=== PATIENT | female | born 1990 | race Caucasian/White ===

== ENCOUNTER → 2019-02-18 | Outpatient (CLI) | payer BC | LOC: MC.RAD 13:31 | DX: N63.13 Unspecified lump in the right breast, lower outer quadrant (principal); N60.01 Solitary cyst of right breast ==

== ENCOUNTER 2021-09-18 13:50 | Inpatient (IN) | payer BC ==
[2021-09-18] VITALS (9 sets, daily range): BP systolic 108–137; BP diastolic 63–93; PULSE 64–81; TEMP 97.9
[~2021-09-18] VITALS: Ht 160 cm; Wt 69.1 kg
--- NOTE | 2021-09-18 20:50 | NUR ---
CRB PLACED BY DR. PENALOZA AT 2050; 80ML/80ML; PATIENT TOLERATED PROCEDURE WELL.
--- NOTE | 2021-09-18 21:00 | NUR ---
PATIENT ADMITTED TO LDR6 FOR IOL SECONDARY TO CHTN. VSS WITH INTERMITTENT MILD BP'S NOTED. FHT REACTIVE AND REASSURING WITH IRREGULAR NON-PAINFUL CONTRACTIONS. CONSENT FORMS SIGNED AND MEDICAL HX OBTAINED. PHYSICAL ASSESSMENT COMPLETED AND WNL. IV PLACED AND LAB WORK DRAWN AND SENT. 500CC IVF BOLUS INITIATED. SVE PERFORMED; 3. DR. PENALOZA TO THE BEDSIDE AT 2030 FOR BEDSIDE ULTRASOUND AND CRB PLACEMENT. LABOR PLAN DISCUSSED WITH PATIENT AND S.O. AND VERBALIZED UNDERSTOOD. WILL CONTINUE TO MONITOR AND UPDATE PROVIDER NEEDED.
[2021-09-18 21:05] LABS: COLLECTION METHOD CLEAN CATCH
[2021-09-18 21:08] LABS: BASO % 0.5 % (0.0-2.0); EOS # 0.2 K/mm3 (0.0-0.7); EOS % 2.7 % (0.0-4.0); GRAN # 5.3 K/mm3 (1.4-6.5); HEMATOCRIT 38.5 % (37.0-47.0); HEMOGLOBIN 13.6 g/dl (12.5-16.0); LYMPH # 1.9 K/mm3 (1.2-3.4); MEAN CELL VOLUME 91 fl (80.0-100.0); MEAN CORPUSCULAR HEMOGLOBIN 32 pg (27-31); MEAN CORPUSCULAR HGB CONC 35 g/dl (33.0-37.0); MEAN PLATELET VOLUME 11.4 fl (7.4-10.4); MONO # 0.8 K/mm3 (0.1-0.6); MONO % 9.4 % (1.7-9.3); PLATELET COUNT 224 K/mm3 (130-400); RED BLOOD COUNT 4.25 M/mm3 (4.10-5.30); REDCELL DISTRIBUTION WIDTH-CV 11.9 % (11.5-14.5)
[2021-09-18 21:11] LABS: MUCOUS Present (NOT PRESENT); PH 6 (5-8); URINE APPEARANCE Hazy (CLEAR/HAZY); URINE BACTERIA Rare /hpf (NONE SEEN); URINE BILIRUBIN Negative (NEGATIVE); URINE BLOOD Negative (NEGATIVE); URINE COLOR Yellow (YELLOW); URINE GLUCOSE Negative (NEGATIVE); URINE KETONE Negative (NEGATIVE); URINE LEUKOCYTE ESTERASE Negative (NEGATIVE); URINE NITRATE Negative (NEGATIVE); URINE PROTEIN(semi-quant) 1+ (NEGATIVE); URINE RBC 0-2 /hpf (0-2); URINE UROBILINOGEN Negative (NEGATIVE); URINE WBC 0-2 /hpf (0-2)
[2021-09-18 21:43] LABS: ALBUMIN 3.2 gm/dL (3.5-5.0); CALCIUM 9.2 mg/dL (8.4-10.2); CREATININE, serum 0.81 mg/dL (0.57-1.11); POTASSIUM 3.9 mmol/L (3.5-4.5); TOTAL PROTEIN 6.9 gm/dL (6.2-8.1)
--- NOTE | 2021-09-18 23:10 | NUR ---
RN TO BEDSIDE FOR PROLONGED LATE DECELERATION. PATIENT EXPERIENCING 6MIN CONTRACTION. TURNED TO LEFT LATERAL WITH FHT RETURN TO BASELINE.
[2021-09-19] VITALS (98 sets, daily range): BP systolic 97–181; BP diastolic 59–101; PULSE 57–113; TEMP 98–99.3
--- NOTE | 2021-09-19 02:50 | NUR ---
DR. PENALOZA CALLED WITH UPDATE ON PATIENT STATUS. INFORMED THAT PATIENT IS FEELING NAUSEAS AND DOES NOT HAVE ORDERS FOR ANTIEMETICS. NEW ORDER RECEIVED FOR ONE 4MG DOSE GIVEN NOW.
--- NOTE | 2021-09-19 04:12 | NUR ---
COOK CATHETER OUT. SVE /-3
--- NOTE | 2021-09-19 14:34 | NUR ---
1340: SVE 5-6/90/-2 PERFORMED BY Marily WOODY RN. PT TOLERATED WELL. 1341: FHR IN THE 80'S. REPOSITIONED PT ON LEFT SIDE. RN ADJUSTING US. 1342: FHR IN THE 70'S REPOSITIONED PT ON RIGHT SIDE. ABDOMEN PALAPTES SOFT BETWEEN CONTRACTIONS. IV BOLUS INITIATED. CALLED FOR ASSISTANCE. 1344: CHARGE NURSE AT BEDSIDE. FHR IN THE 60'S. O2 MASK PLACED. REPOSTIONED ON LEFT SIDE. SCALP STIMULATION PREFORMED BY Marily CARMICHAEL RN. FHR REACTIVE. SVE THE SAME. 1346: FHR IN THE 110'S AT THIS TIME. PT STABLE. EDUCATED PT ON INTERVENTIONS. PT VERBALIZED UNDERSTANDING.
--- NOTE | 2021-09-19 15:07 | NUR ---
1411: FHR IN THE 90'S. PT REPOSITIONED ON RIGHT SIDE. IV BOLUS STILL RUNNING. O2 MASK STILL ON @ 10L. 1412: FHR IN THE 60'S AT THIS TIME. REPOSTITIONED ON LEFT SIDE. RN CALLED FOR ASSISTANCE. 1413: CHARGE NURSE AT BEDSIDE. PITOCIN TURNED OFF. FHR IN THE 130'S WITH MODERATE VARIABILITY.
--- NOTE | 2021-09-19 21:00 | NUR ---
MONITORING REVIEWED WITH DR. PENALOZA; TO BEDSIDE FOR SVE, /+1
--- NOTE | 2021-09-19 21:35 | NUR ---
STRIP REVIEWED WITH DR. PENALOZA; TO BEDSIDE FOR SVE; COMPLETE
--- NOTE | 2021-09-19 21:39 | NUR ---
2138 - PATIENT COMPLETE AND +2 STATION. 2140 - PUSHING INITIATED WITH DR. PENALOZA AT BEDSIDE; PT. PUSHING WELL 2149 - BABY NOT TOLERATING PUSHING IN STANDARD SEMI FOWLERS/TILT POSITION; PATIENT TURNED TO LEFT LATERAL TO PUSH. 2157 - DR. PENALOZA AT BEDSIDE TO ASSESS PUSHING AND STATUS; ORDERS RECEIVED TO D/C PUSHING AND LABOR DOWN WHILE BABY RECOVERS. 2229 - STRIP REVIEWED WITH DR. PENALOZA; TO BEDSIDE TO REINITIATE PUSHING; SHAVER REMOVED; 10L O2 VIA MASK APPLIED. ADDITIONAL STAFF CALLED TO BEDSIDE. 2255 - FHR TRACING INDICATING DISTRESS; VACCUUM APPLIED. 2257 - 2303 - SPONTANEOUS DELIVERY OF PLACENTA; OXYTOCIN BOLUS INITIATED. VSS.
[2021-09-20] VITALS (10 sets, daily range): BP systolic 117–158; BP diastolic 80–89; PULSE 72–90; TEMP 97.4–98.8
[2021-09-20 05:52] LABS: HEMATOCRIT 29.7 % (37.0-47.0)
[2021-09-20 05:53] LABS: HEMOGLOBIN 10.6 g/dl (12.5-16.0)
--- NOTE | 2021-09-20 09:25 | NUR ---
Initial visit; Parents thanked [employer] for offering congratulations and God's blessings for the of their son. [employer] thanked family for choosing our hospital.
--- NOTE | 2021-09-20 15:45 | NUR ---
1545 - PATIENT ARRIVED TO UNIT BY WHEELCHAIR ACCOMPANIED BY SPOUSE. PATIENT REPORTS CONTRACTIONS EVERY 5 MINUTES AND GETTING STRONGER. PATIENT DENIES BLOODY SHOW OR LEAKING OF FLUID. PATIENT REPORTS GOOD MOVEMENT. PLAN OF CARE REVIEWED. PATIENT CHANGES INTO GOWN. 1555 - PATIENT ON MONITOR. 1600 - SVE PERFORMED. . PATIENT REPOSITIONED. ORAL HYDRATION PROVIDED. PLAN OF CARE REVIEWED. CARE ONGOING.
[2021-09-20] MEDS ORDERED: IBU600 MG PO (22:04)
[2021-09-20] MEDS ORDERED: PROCARDIA XL 3030 MG PO (22:04)
[2021-09-21 07:00] VITALS: BP 131/87; PULSE 97; TEMP 98.2
--- NOTE | 2021-09-21 12:20 | NUR ---
ALL DC PAPERWORK REVIEWED AND UNDERSTOOD. PT DENIES FURTHER QUESTIONS OR CONCERNS. IN CAR SEAT SAFELY AND APPROPRIATELY. ALL BELONGINGS ACCOUNTED FOR. PT IN STABLE CONDITION AND AMBULATORY FROM UNIT.
== END 2021-09-21 12:20 | disposition home or self-care (01) | DRG 806 ==
LOC: OB 13:50 → LDR 19:05 → OB 19:05
PROVIDERS: ADMIT Obstetrics & Gynecology
PROC: 0U7C7DZ Dilation of Cervix with Intraluminal Device, Via Natural or Artificial Opening (ICD-10-PCS; 2021-09-18)
PROC: 10D07Z6 Extraction of Products of Conception, Vacuum, Via Natural or Artificial Opening (ICD-10-PCS; principal; 2021-09-19)
PROC: 0KQM0ZZ Repair Perineum Muscle, Open Approach (ICD-10-PCS; 2021-09-19)
PROC: 10907ZC Drainage of Amniotic Fluid, Therapeutic from Products of Conception, Via Natural or Artificial Opening (ICD-10-PCS; 2021-09-19)
DX: O10.92 Unspecified pre-existing hypertension complicating childbirth (principal); D80.2 Selective deficiency of immunoglobulin A [IgA]; Z37.0 Single live birth; O99.12 Other diseases of the blood and blood-forming organs and certain disorders involving the immune mechanism complicating childbirth; O99.72 Diseases of the skin and subcutaneous tissue complicating childbirth; L50.1 Idiopathic urticaria; O70.1 Second degree perineal laceration during delivery; O77.0 Labor and delivery complicated by meconium in amniotic fluid; Z3A.39 39 weeks gestation of pregnancy
CPT/HCPCS: J2405; J2590; J7120